=== PATIENT | female | born 1965 | race Caucasian/White ===

== ENCOUNTER 2016-07-05 16:17 | Emergency (ER) | payer OTHER ==
[~2016-07-05] VITALS: Ht 162.6 cm; Wt 67.4 kg
[~2016-07-05 16:17] MED LIST: AFRIN15 ML BOTH NARES; ALLEGRA ALLERGY60 MG PO; ALLEGRA-D 241 TABLET PO; CITRATE OF MAG296 ML PO; DOCUSATE SODIU100 MG PO; FEROSUL325 MG PO; MAALOX ADVANCE1 EACH PO; MIRALAX255 GM PO; MUCINEX D ER T1 EACH PO; SIMETHICONE125 M1 PO; SINGULAIR10 MG PO; VENTOLIN HFA18 GM IH; VITAMIN B12; WOMEN'S DAILY1 EAC1 PO; ZANTAC150 MG PO; ZITHROMAX Z-PA250 MG PO; ZYRTEC-D1 TABLET PO
[2016-07-05] MEDS ORDERED: VALIUM5 MG PO (19:20)
[2016-07-05] MEDS ORDERED: ANTIVERT25 MG PO (19:20)
[2016-07-05] MEDS ORDERED: MOTRIN800 MG PO (19:20)
[2016-07-05 20:45] VITALS: BP 148/97
[2016-07-05] MEDS ORDERED: ZOFRAN ODT4 MG PO (20:48)
[2016-07-05] MEDS ORDERED: FIORICET 50-301 EACH PO (20:48)
== END 2016-07-05 21:04 | disposition home or self-care (01) ==
LOC: EME 16:17
DX: S09.90XA Unspecified injury of head, initial encounter (principal); S06.0X0A Concussion without loss of consciousness, initial encounter; S16.1XXA Strain of muscle, fascia and tendon at neck level, initial encounter; W19.XXXA Unspecified fall, initial encounter; K21.9 Gastro-esophageal reflux disease without esophagitis
CPT/HCPCS: 70450; 72040; 99281; 99284